=== PATIENT | male | born 1965 | race Caucasian/White ===

== ENCOUNTER → 2021-08-26 | Outpatient (CLI) | payer BC ==
--- NOTE | 2021-08-26 12:05 | Diagnostic Imaging Report ---
CT Lung Screening INDICATION:60 pack year smoking history for low-dose screening TECHNIQUE: Noncontrast, low-dose CT imaging performed according to the lung cancer screening protocol. Auto Exposure Controls were utilize during the CT exam to meet ALARA standards for radiation dose reduction. COMPARISON:Baseline FINDINGS:No lung mass or suspicious pulmonary nodule. Some symmetrical air trapping and mild biapical pleural-parenchymal scarring on a chronic basis. A few predominantly upper lobe paraseptal cysts, chronic. Thoracic aorta nonaneurysmal. There is no pleural or pericardial effusion. No findings of pneumonia or edema. No acute chest wall pathology. The visualized upper abdomen unremarkable. IMPRESSION:No acute finding or evidence for lung cancer LUNG-RADS CATEGORY:Category 1 MODIFIER:None OTHER SIGNIFICANT FINDINGS:Chronic sequelae of COPD. Dictated by: Dictated on workstation # [id number]
== END ==
LOC: RAD 11:15
PROVIDERS: ATTEND Nurse Practitioner Family
DX: Z12.2 Encounter for screening for malignant neoplasm of respiratory organs (principal); F17.210 Nicotine dependence, cigarettes, uncomplicated
CPT/HCPCS: 71271